=== PATIENT | female | born 1945 | race Caucasian/White ===

== ENCOUNTER 2022-05-01 11:02 | Emergency (ER) | payer MEDICARE ==
[2022-05-01 11:11] VITALS: BP 160/76
--- NOTE | 2022-05-01 12:40 | ED Physician Documentation ---
History of Present Illness - Stated complaint Stated Complaint: MED REFILL - Chief complaint Chief Complaint: General - Additonal information Additional information: 76-year-old female presents to the emergency department requesting a refill of oxycodone. She has a past medical history most significant for tobaccoism (quit for one year), hypertension as well as arterial insufficiency. 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 [place]. Her provider had been refilling her oxycodone for her every few months typically 120 tablets. On average she takes it 3 times a day. The patient and her [place] She took her last dose this morning. They deny any chest pain or shortness of air. No other emergent concerns or complaints at this time. Simply requesting a refill. Review of Systems Constitutional: denies: Fever, Chills Musculoskeletal: reports: Back pain, Extremity pain PD PAST MEDICAL HISTORY - Present Medications Home Medications: Ambulatory Orders Medication Instructions Recorded Confirmed oxyCODONE [Roxicodone] 5 mg PO TID PRN #30 tablet 05/01/22 - Allergies Allergies/Adverse Reactions: Allergies Allergy/AdvReac Type Severity Reaction Status Date / Time amlodipine Allergy Anaphylaxis Verified 05/01/22 11:12 ibuprofen Allergy Unknown Verified 05/01/22 11:12 lisinopril Allergy Anaphylaxis Verified 05/01/22 11:12 pseudoephedrine Allergy Hives Verified 05/01/22 11:12 PD ED PE NORMAL - General General: Alert and oriented X 3, Well developed/nourished (Obese geriatric appearance appears Older than stated age) - HEENT HEENT: Atraumatic, Moist mucous membranes - Cardiac Cardiac: RRR, No murmur - Respiratory Respiratory: No respiratory distress, Clear bilaterally - Abdomen Abdomen: Normal bowel sounds, Soft - Extremities Extremities: Other (Right BKA) - Neuro Neuro: Alert and oriented X 3 Eye Opening: Spontaneous Motor: Obeys Commands Verbal: Oriented GCS Score: 15 Results - Vitals Vitals: Vital Signs - 24 hr 05/01/22 11:07 Temperature 36.0 C L Heart Rate 65 Respiratory 20 Rate Blood Pressure 160/76 H O2 Saturation 97 Oxygen O2 Source Room air PD Medical Decision Making - ED course Complexity details: considered differential, d/w patient, d/w family ED course: 76-year-old female has past medical history most significant for coronary artery disease, hypertension as well as arterial insufficiency 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 She recently moved from [place] to [facility] and does not have a primary care appointment set up until mid June. The patient took her last dose of oxycodone this morning. Here in the emergency department her exam is unremarkable sparing the BKA and some mild hypertension. I discussed with patient and her daughter that the emergency department cannot in the long-term manage her chronic pain but that I would write a one-time prescription for 30 tablets. They are considering all determinative places to receive care including [facility] or the [facility] as the ability to see a primary provider sooner may be easier through these care systems. I will send a prescription for 30 tablets of oxycodone to the [facility]. I feel that this is reasonable. The patient has been on these pain medications for more than 5 years. I feel that it abrupt withdrawal of these pain medications could be Disastrous given her extreme age and fragile clinical condition. However we did discuss that the emergency department cannot prescribe in the long-term moving forward. I also gave him alternative clinics to consider for accessing primary care such as [facility] or even [facility]. Departure - Departure Disposition: 01 Home, Self Care Clinical Impression: Encounter for medication refill Chronic pain Qualifiers: Chronic pain type: chronic pain syndrome Qualified Code(s): G89.4 - Chronic pain syndrome Condition: Stable Record reviewed to determine appropriate education?: Yes Prescriptions: oxyCODONE [Roxicodone] 5 mg PO TID PRN #30 tablet PRN Reason: Pain Comments: Celestina came to the emergency department today because she has run out of her chronic pain medication. Unfortunately the emergency department in the long- term cannot continue to prescribe refills. I sent a prescription for 30 tablets to the [facility] in [place]. The emergency department will not be able to refill this medication for any reason in the future moving forward. [place]. You may find more timely follow-up with a primary care provider by either accessing the [facility] or [facility] primary care offices. Please return to the emergency department with any other emergent concerns. I am prescribing a short course of narcotic pain medication for you. These are potentially dangerous and addictive medications that should be used carefully. These medications may constipate you. Take an pylf-cwd-esexgad stool softener (docusate) twice daily with plenty of water while taking these medications. If you go 24 hours without a bowel movement, take [id number] miralax, per package instructions. Do not drink or drive while taking these medications. If you received narcotic or sedating medications while in the emergency department, do not drive for 24 hours. Store this medication in a safe, secure place and out of reach of children. It is a violation of federal law to give or sell this medication to another person or to use in a manner other than prescribed. The ED will not refill narcotic prescriptions, including prescriptions lost or stolen. To dispose of unwanted medications: 1. [facility] at [address] in [place] has a medication drop box. They accept prescription medications (in pill form) Wednesday through Wednesday 9:00 a.m. to 5:00 p.m. 2. The [facility] [employer] accepts prescription medications (in pill form only) for disposal year round. Call for more information. 3. Contact the [facility] for the next [facility] sponsored prescription drug collection event. , [phone], or [phone]; Note that many narcotic pain relievers also contain Tylenol/acetaminophen. Please ensure that your total dose of acetaminophen from all sources does not exceed 3 g (3000 mg) per day.
== END 2022-05-01 12:45 | disposition home or self-care (01) ==
LOC: ED 11:02
DX: Z76.0 Encounter for issue of repeat prescription (principal); G89.4 Chronic pain syndrome
CPT/HCPCS: 99281; 99282